=== PATIENT | female | born 1985 | race Caucasian/White ===

== ENCOUNTER 2017-09-06 18:34 | Emergency (ER) | payer MEDICAID ==
[~2017-09-06] VITALS: Ht 165.1 cm; Wt 59.0 kg
[2017-09-06 18:39] VITALS: BP 132/68
== END 2017-09-06 19:04 | disposition home or self-care (01) ==
LOC: ER 18:36
DX: F11.10 Opioid abuse, uncomplicated (principal); G40.909 Epilepsy, unspecified, not intractable, without status epilepticus; I47.1 Supraventricular tachycardia
CPT/HCPCS: 99281; A4606; Z7610; Z7502

== ENCOUNTER 2023-09-07 15:51 | Emergency (ER) | payer MEDICAID ==
[~2023-09-07] VITALS: Ht 167.6 cm; Wt 82.6 kg
[2023-09-07] MEDS ORDERED: KETOROLAC TROMETHAMINE INJ 30 MG/ML VIAL IM ONE (17:00)
[2023-09-07] MEDS ORDERED: KETOROLAC TROMETHAMINE INJ 30 MG/ML VIAL ONE (17:04)
[2023-09-07 20:17] VITALS: BP 125/75; TEMP 98.5; O2SAT 94
[2023-09-12] MEDS ORDERED: ACET325T53 PO (11:19)
[2023-09-12] MEDS ORDERED: AMOX-430 PO (11:19)
== END 2023-09-07 20:10 | disposition home or self-care (01) ==
LOC: ER 15:55
DX: J18.9 Pneumonia, unspecified organism (principal); R09.02 Hypoxemia
CPT/HCPCS: 99283; 71045; 96372; 93005; J1885

== ENCOUNTER 2023-09-09 01:23 | Inpatient (IN) | payer MEDICAID ==
[~2023-09-09] VITALS: Ht 167.6 cm; Wt 85.3 kg
[2023-09-09 03:10] LABS: BASOPHILS # (AUTO) 0.1 K/uL (0.0-0.2); BASOPHILS % (AUTO) 0.9 % (0.0-2.0); EOSINOPHILS # (AUTO) 0.1 K/uL (0.0-0.7); EOSINOPHILS % (AUTO) 0.8 % (0.0-6.0); HEMATOCRIT 29 % (33-45); HEMOGLOBIN 9.5 g/dL (11.5-14.8); LYMPHOCYTES # (AUTO) 1.7 K/uL (0.8-4.8); LYMPHOCYTES % (AUTO) 18.7 % (20.0-44.0); MEAN CORPUSCULAR HEMOGLOBIN 30 PG (26.0-33.0); MEAN CORPUSCULAR HGB CONC 33 g/dl (31.0-36.0); MEAN CORPUSCULAR VOLUME 93 fL (82-100); MONOCYTES # (AUTO) 1.1 K/uL (0.1-1.30); MONOCYTES % (AUTO) 12.5 % (2.0-12.0); NEUTROPHILS # (AUTO) 6.2 K/uL (1.8-8.9); NEUTROPHILS % (AUTO) 67.1 % (43.0-81.0); PLATELET COUNT (AUTO) 571 K/uL (150-450); RED BLOOD CELL COUNT(AUTO) 3.13 MIL/uL (4.0-5.2); RED CELL DISTRIBUTION WIDTH 14.3 % (11.5-15.0); WHITE BLOOD COUNT (AUTO) 9.2 K/uL (4.3-11.0)
[2023-09-09 03:18] LABS: INR 1.23 (0.91-1.10); PARTIAL THROMBOPLASTIN TIME 38.5 SEC (24.3-34.3); PROTHROMBIN TIME 12.9 SECS (9.2-11.1)
[2023-09-09 03:21] LABS: CALCIUM, SERUM 8.5 mg/dL (8.5-10.1); CARBON DIOXIDE 28 mmol/L (21-32); CHLORIDE 96 mmol/L (98-107); CREATININE 0.9 mg/dL (0.6-1.3); GLUCOSE 102 mg/dL (74-106); POTASSIUM 2.9 mmol/L (3.5-5.1); SODIUM SERUM 131 mmol/L (136-145); UREA NITROGEN, BLOOD 5 mg/dL (7-18)
[2023-09-09 03:26] LABS: ALANINE AMINOTRANSFERASE 42 U/L (12-78); ALBUMIN 2.1 g/dL (3.4-5.0); ALKALINE PHOSPHATASE 72 U/L (46-116); ASPARTATE AMINOTRANSFERASE 41 U/L (15-37); BILIRUBIN,DIRECT 0.2 mg/dL (0.0-0.2); BILIRUBIN,TOTAL 0.4 mg/dL (0.2-1.0); TOTAL PROTEIN, SERUM 7.8 g/dL (6.4-8.2)
[2023-09-09] MEDS ORDERED: KETOROLAC TROMETHAMINE INJ 60 MG/2 ML VIAL IM ONE (04:00)
[2023-09-09] MEDS ORDERED: POTASSIUM CHLORIDE 20 MEQ TAB.PRT.SR PO ONE ×2 (04:00→05:21)
[2023-09-09] MEDS ORDERED: ACETAMINOPHEN 325 MG TABLET PO ONE (04:00)
[2023-09-09] MEDS ORDERED: ACETAMINOPHEN ES 500 MG TABLET ONE (04:11)
[2023-09-09 04:20] LABS: MAGNESIUM 1.8 mg/dL (1.8-2.4)
[2023-09-09] MEDS ORDERED: KETOROLAC TROMETHAMINE INJ 30 MG/ML VIAL ONE (05:23)
[2023-09-09] MEDS ORDERED: MAG HYDROX/AL HYDROX/SIMETH 30 ML UDC PO PRN (05:30)
[2023-09-09] MEDS ORDERED: HYDROCODONE/APAP 10/325MG TABLET PO PRN (05:30)
[2023-09-09] MEDS ORDERED: ONDANSETRON HCL/PF 4 MG/2 ML VIAL IVP PRN (05:30)
[2023-09-09] MEDS ORDERED: Z GUARD REMEDY 4 OZ OINT TP PRN (05:30)
[2023-09-09] MEDS ORDERED: TEMAZEPAM 15 MG CAPSULE PO PRN (05:30)
[2023-09-09] MEDS ORDERED: MAGNESIUM HYDROXIDE 30 ML UDC PO PRN (05:30)
[2023-09-09] MEDS ORDERED: ACETAMINOPHEN 325 MG TABLET PO PRN (05:30)
[2023-09-09] MEDS ORDERED: MORPHINE SULFATE INJ 2 MG/ML DISP.SYRIN IM ONE (06:00)
[2023-09-09] MEDS: CEFEPIME 2 GM in IV D5W 50 ML IV ONE ×2 (07:00→07:47)
[2023-09-09] MEDS: VANCOMYCIN 1 GM in IV D5W 250 ML IV ONE ×2 (07:00→07:59)
[2023-09-09 07:30] VITALS: BP 126/75; TEMP 97.7; O2SAT 96
[2023-09-09] MEDS ORDERED: PANTOPRAZOLE 40 MG TABLET.DR PO ONE (07:37)
[2023-09-09] MEDS ORDERED: MORPHINE SULFATE INJ 4 MG/ML DISP.SYRIN ONE (07:37)
[2023-09-09] MEDS: PANTOPRAZOLE 40 MG TABLET.DR PO SCH (07:45)
[2023-09-09] MEDS ORDERED: VANCOMYCIN 1.5 GM in IV D5W 500 ML IV ONE (08:00)
[2023-09-09] MEDS: CEFEPIME 2 GM in IV D5W 100 ML IV SCH ×3 (08:15→23:46)
[2023-09-09] MEDS ORDERED: CEFEPIME 1 GM in IV D5W 50 ML IV SCH (09:00)
[2023-09-09 12:00] VITALS: BP 101/57; TEMP 97.3; O2SAT 98
[2023-09-09] MEDS: IV NS 0.9% 1,000 ML IV PRN (15:57)
[2023-09-09 16:00] VITALS: BP 105/59; TEMP 97.5; O2SAT 100
[2023-09-09] MEDS: VANCOMYCIN 1.25 GM in IV D5W 250 ML IV SCH (19:58)
[2023-09-09 20:00] VITALS: BP 103/55; TEMP 97.8; O2SAT 96
[2023-09-10] VITALS (7 sets, daily range): BP systolic 86–113; BP diastolic 46–69; TEMP 97.7–98.2; O2SAT 97–100
[2023-09-10] MEDS: PANTOPRAZOLE 40 MG TABLET.DR PO SCH (08:46)
[2023-09-10] MEDS: VANCOMYCIN 1.25 GM in IV D5W 250 ML IV SCH ×2 (08:57→20:59)
[2023-09-10] MEDS: CEFEPIME 2 GM in IV D5W 100 ML IV SCH ×3 (08:57→23:54)
[2023-09-10] MEDS: HYDROCODONE/APAP 5/325MG TABLET PO PRN (08:59)
[2023-09-11] VITALS (8 sets, daily range): BP systolic 91–139; BP diastolic 55–77; TEMP 97.5–98.8; O2SAT 96–100
[2023-09-11] MEDS: IV NS 0.9% 1,000 ML IV PRN (04:11)
[2023-09-11 06:59] LABS: BASOPHILS # (AUTO) 0.1 K/uL (0.0-0.2); BASOPHILS % (AUTO) 0.8 % (0.0-2.0); EOSINOPHILS # (AUTO) 0.2 K/uL (0.0-0.7); EOSINOPHILS % (AUTO) 2.7 % (0.0-6.0); HEMATOCRIT 27 % (33-45); HEMOGLOBIN 8.7 g/dL (11.5-14.8); LYMPHOCYTES # (AUTO) 1.5 K/uL (0.8-4.8); LYMPHOCYTES % (AUTO) 24.7 % (20.0-44.0); MEAN CORPUSCULAR HEMOGLOBIN 31 PG (26.0-33.0); MEAN CORPUSCULAR HGB CONC 33 g/dl (31.0-36.0); MEAN CORPUSCULAR VOLUME 93 fL (82-100); MONOCYTES # (AUTO) 0.7 K/uL (0.1-1.30); MONOCYTES % (AUTO) 11.5 % (2.0-12.0); NEUTROPHILS # (AUTO) 3.7 K/uL (1.8-8.9); NEUTROPHILS % (AUTO) 60.3 % (43.0-81.0); PLATELET COUNT (AUTO) 432 K/uL (150-450); RED BLOOD CELL COUNT(AUTO) 2.85 MIL/uL (4.0-5.2); RED CELL DISTRIBUTION WIDTH 14.1 % (11.5-15.0); WHITE BLOOD COUNT (AUTO) 6.1 K/uL (4.3-11.0)
[2023-09-11 07:26] LABS: CALCIUM, SERUM 8.2 mg/dL (8.5-10.1); CREATININE 0.8 mg/dL (0.6-1.3); POTASSIUM 3.1 mmol/L (3.5-5.1)
[2023-09-11] MEDS: PANTOPRAZOLE 40 MG TABLET.DR PO SCH (08:28)
[2023-09-11] MEDS: HYDROCODONE/APAP 5/325MG TABLET PO PRN (08:28)
[2023-09-11] MEDS: CEFEPIME 2 GM in IV D5W 100 ML IV SCH ×3 (09:09→23:56)
[2023-09-11] MEDS: POTASSIUM CHLORIDE 20 MEQ TAB.PRT.SR PO SCH ×2 (11:26→12:45)
[2023-09-11] MEDS: VANCOMYCIN 1 GM in IV D5W 250ml IV SCH (21:45)
[2023-09-12] VITALS: BP 105/76; TEMP 97.7; O2SAT 97
[2023-09-12 04:00] VITALS: BP 148/75; TEMP 97.7; O2SAT 97
[2023-09-12] MEDS: VANCOMYCIN 1 GM in IV D5W 250ml IV SCH (06:06)
[2023-09-12] MEDS: IV NS 0.9% 1,000 ML IV PRN (06:09)
[2023-09-12] MEDS: HYDROCODONE/APAP 5/325MG TABLET PO PRN (06:22)
[2023-09-12 06:46] LABS: BASOPHILS # (AUTO) 0.1 K/uL (0.0-0.2); BASOPHILS % (AUTO) 0.9 % (0.0-2.0); EOSINOPHILS # (AUTO) 0.2 K/uL (0.0-0.7); EOSINOPHILS % (AUTO) 3.1 % (0.0-6.0); HEMATOCRIT 27 % (33-45); HEMOGLOBIN 8.9 g/dL (11.5-14.8); LYMPHOCYTES # (AUTO) 1.6 K/uL (0.8-4.8); LYMPHOCYTES % (AUTO) 24.5 % (20.0-44.0); MEAN CORPUSCULAR HEMOGLOBIN 31 PG (26.0-33.0); MEAN CORPUSCULAR HGB CONC 33 g/dl (31.0-36.0); MEAN CORPUSCULAR VOLUME 92 fL (82-100); MONOCYTES # (AUTO) 0.8 K/uL (0.1-1.30); MONOCYTES % (AUTO) 11.5 % (2.0-12.0); PLATELET COUNT (AUTO) 413 K/uL (150-450); RED BLOOD CELL COUNT(AUTO) 2.93 MIL/uL (4.0-5.2); RED CELL DISTRIBUTION WIDTH 14.1 % (11.5-15.0); WHITE BLOOD COUNT (AUTO) 6.7 K/uL (4.3-11.0)
[2023-09-12 07:09] LABS: CALCIUM, SERUM 8.2 mg/dL (8.5-10.1); CREATININE 0.8 mg/dL (0.6-1.3); POTASSIUM 3.4 mmol/L (3.5-5.1)
[2023-09-12 08:00] VITALS: BP 109/74; TEMP 97.6; O2SAT 96
[2023-09-12] MEDS ORDERED: POTASSIUM CHLORIDE 20 MEQ TAB.PRT.SR PO SCH (09:30)
[2023-09-12] MEDS: CEFEPIME 2 GM in IV D5W 100 ML IV SCH (10:04)
[2023-09-12] MEDS: PANTOPRAZOLE 40 MG TABLET.DR PO SCH (10:05)
[2023-09-12] MEDS ORDERED: ACET325T53 PO (11:19)
[2023-09-12] MEDS ORDERED: AMOX-430 PO (11:19)
[2023-09-12 12:00] VITALS: BP 115/66; TEMP 98; O2SAT 95
== END 2023-09-12 15:38 | disposition home or self-care (01) | DRG 139 ==
LOC: ER 01:28 → TELE 06:25
PROVIDERS: ADMIT Nurse Practitioner Acute Care; ATTEND Nurse Practitioner Acute Care
PROC: 05H933Z Insertion of Infusion Device into Right Brachial Vein, Percutaneous Approach (ICD-10-PCS; principal; 2023-09-11)
PROC: 05H533Z Insertion of Infusion Device into Right Subclavian Vein, Percutaneous Approach (ICD-10-PCS; 2023-09-11)
PROC: B546ZZA Ultrasonography of Right Subclavian Vein, Guidance (ICD-10-PCS; 2023-09-11)
DX: J15.9 Unspecified bacterial pneumonia (principal); J96.01 Acute respiratory failure with hypoxia; E44.0 Moderate protein-calorie malnutrition; E22.2 Syndrome of inappropriate secretion of antidiuretic hormone; K29.70 Gastritis, unspecified, without bleeding; D64.9 Anemia, unspecified; E66.9 Obesity, unspecified; E86.1 Hypovolemia; E87.6 Hypokalemia; G40.909 Epilepsy, unspecified, not intractable, without status epilepticus; J43.9 Emphysema, unspecified; Z28.310 Unvaccinated for COVID-19; Z20.822 Contact with and (suspected) exposure to COVID-19; F17.210 Nicotine dependence, cigarettes, uncomplicated; Z68.30 Body mass index [BMI] 30.0-30.9, adult; J90 Pleural effusion, not elsewhere classified; R07.9 Chest pain, unspecified; K21.9 Gastro-esophageal reflux disease without esophagitis
CPT/HCPCS: 36415; 71045-TC; 71250-TC; 80048-TC; 80076-TC; 80202-TC; 83735-TC; 84484-TC; 84702-TC; 85025-TC; 85730-TC; 87040-TC; A4223; C9803; G0378; J0692; J1885; J2270; J3370; J7030; J7060